=== PATIENT | female | born 1990 | race Two or more races ===

== ENCOUNTER 2016-07-13 09:53 | Emergency (ER) | payer BC ==
[~2016-07-13] VITALS: Ht 154.9 cm; Wt 95.3 kg
[2016-07-13] MEDS ORDERED: PROCHLORPERAZINE 10 MG/2 ML VIAL. IV ONE (11:00)
[2016-07-13] MEDS ORDERED: IV NORMAL SALINE 1000ML BAG 1,000 ML IV ONE (11:00)
[2016-07-13] MEDS ORDERED: DIPHENHYDRAMINE 50 MG/ML VIAL IVP ONE (11:00)
[2016-07-13 11:02] LABS: NEG OBC UR NEG; POS OBC UR POS
--- NOTE | 2016-07-13 11:18 | RAD ---
CT of the head without contrast, 07/13/2016: History: Headache The ventricles are within normal limits in size. There is no shift of the midline structures. There is no evidence of acute intracranial hemorrhage or mass effect. IMPRESSION: No acute intracranial abnormality is detected. PQRS Compliance Statement: One or more of the following individualized dose reduction techniques were utilized for this examination: 1. Automated exposure control 2. Adjustment of the mA and/or kV according to patient size 3. Use of iterative reconstruction technique
[2016-07-13 12:30] VITALS: BP 141/75
--- NOTE | 2016-07-13 12:36 | PHYS DOC ---
Past Medical History Past Medical History: Asthma, Depression Past Surgical History: Alcohol Use: Occasionally Drug Use: Marijuana Adult General Chief Complaint Chief Complaint: HEADACHE HPI HPI Patient is a 25 year old female who presents with headache, gradual in onset over the past 3 days, bilateral, throbbing and aching, associated with bilateral blurry vision and nausea. Has some photophobia and nausea. Has had headaches this bad prior, but not in a while. Denies f/c, emesis, numbness, tingling, weakness, dizziness, eye pain. Took ibuprofen 600mg prior to coming without relief. Review of Systems Review of Systems Constitutional: Denies fever or chills [] Eyes: Denies change in redness, or eye pain [] HENT: Denies nasal congestion or sore throat [] Respiratory: Denies cough or shortness of breath [] Cardiovascular: No additional information not addressed in HPI [] GI: Denies abdominal pain, vomiting, bloody stools or diarrhea [] : Denies dysuria or hematuria [] Musculoskeletal: Denies back pain or joint pain [] Integument: Denies rash or skin lesions [] Neurologic: Denies focal weakness or sensory changes [] Endocrine: Denies polyuria or polydipsia [] Current Medications Current Medications Current Medications Medications (Trade) Dose Ordered Sig/Lolly Start Time Stop Time Status Last Admin Dose Admin Diphenhydramine HCl 25 mg 25 mg 1X ONCE 07/13/16 11:00 07/13/16 11:01 DC 07/13/16 11:03 25 MG Prochlorperazine Edisylate (Compazine) 10 mg 1X ONCE 07/13/16 11:00 07/13/16 11:01 DC 07/13/16 11:07 10 MG Sodium Chloride (Iv Sodium Chloride 0.9% 1000ml Bag) 1,000 ml @ 1,000 mls/hr 1X ONCE 07/13/16 11:00 07/13/16 11:59 DC 07/13/16 11:01 1,000 MLS/HR Allergies Allergies Allergies Coded Allergies Type Severity Reaction Last Updated Verified shellfish derived Allergy Severe WHEEZING 07/13/16 Yes Penicillins Allergy Intermediate HIVES 07/13/16 Yes Physical Exam Physical Exam Constitutional: Well developed, well nourished, no acute distress, non-toxic appearance. [] HENT: Normocephalic, atraumatic, bilateral external ears normal, oropharynx moist, no oral exudates, nose normal. [] Eyes: PERRLA, EOMI. [] Neck: Normal range of motion, supple. [] Cardiovascular:Heart rate regular rhythm [] Lungs & Thorax: Bilateral breath sounds clear to auscultation [] Abdomen: Bowel sounds normal, soft, no tenderness. [] Skin: Warm, dry, no erythema, no rash. [] Back: No tenderness, no CVA tenderness. [] Extremities: No tenderness, ROM intact, no edema. [] Neurologic: Alert and oriented X 3, normal motor function, normal sensory function, no focal deficits noted, cranial nerves II through XII intact. [] Psychologic: Affect normal, judgement normal, mood normal. [] Current Patient Data Vital Signs Vital Signs Date Time Temp Pulse Resp B/P Pulse Ox O2 Delivery O2 Flow Rate FiO2 07/13/16 12:30 89 141/75 97 07/13/16 10:10 97.7 14 Room Air 97.7 Lab Values Laboratory Tests Test 07/13/16 10:05 Urine Test Negative (NEG) Radiology/Procedures Radiology/Procedures Head CT without contrast IMPRESSION: No acute intracranial abnormality is detected. DICTATED and SIGNED BY: RENEA ALEXANDRA MD DATE: 07/13/16 1113 Course & Med Decision Making Course & Med Decision Making Pertinent Labs and Imaging studies reviewed. (See chart for details) Workup is unremarkable. Headache is resolved after medications. She would like to go home. Return precautions given. She understood and agrees with plan. Dragon Disclaimer Dragon Disclaimer This electronic medical record was generated, in whole or in part, using a voice recognition dictation system. Departure Departure Impression: Primary Impression: Headache Disposition: HOME, SELF-CARE Condition: STABLE Referrals: OFE BRIDGES (PCP) Patient Instructions: Migraine Headache, [id number] Additional Instructions: Follow-up with your primary care doctor. Return for any concerns. Problem Qualifiers Primary Impression: Headache Headache type: unspecified Headache chronicity pattern: acute headache Intractability: not intractable Qualified Code: R51 - Headache Aldair JIM MD Jul 13, 2016 12:36
== END 2016-07-13 13:08 | disposition home or self-care (01) ==
LOC: ER 09:53
DX: R51 Headache (principal); F12.10 Cannabis abuse, uncomplicated; J45.909 Unspecified asthma, uncomplicated; F32.9 Major depressive disorder, single episode, unspecified; H53.149 Visual discomfort, unspecified; Z88.0 Allergy status to penicillin; Z91.013 Allergy to seafood
CPT/HCPCS: 70450; 81025; 96361; 96374; 96375; 99285; J0780; J1200; J7030